=== PATIENT | male | born 1945 | race Caucasian/White ===

== ENCOUNTER 2022-11-03 13:37 | Emergency (ER) | payer MEDICARE ==
[2022-11-03] MEDS ORDERED: ASPIRIN81 MG PO (14:03)
[2022-11-03] MEDS ORDERED: ALBUTEROL SUL0.083 % IN (14:04)
[2022-11-03] MEDS ORDERED: CARVEDILOL6.25 MG PO (14:05)
[2022-11-03] MEDS ORDERED: LIPITOR80 M1 PO (14:05)
[2022-11-03] MEDS ORDERED: PLAVIX75 MG PO (14:06)
[2022-11-03 14:16] VITALS: BP 127/69
[2022-11-03 14:30] VITALS: BP 109/58
[2022-11-03 14:44] LABS: BASO% 0.1 % (0-3); EOS% 0.5 % (0-8); HEMATOCRIT 31.5 % (39.0-50.0); HEMOGLOBIN 10.1 g/dl (14.0-18.0); IMMATURE GRANULOCYTES 0.3 % (0.0-5.0); LYMPH% 5.1 % (15-41); MEAN CELL VOLUME 107.9 fL CALC (80.0-100.0); MEAN CORPUSCULAR HGB 34.6 pG CALC (26.0-32.0); MEAN CORPUSCULAR HGB CONC 32.1 g/dL CAL (32.0-36.0); MONO% 8.7 % (2-13); NEUT# 9.72 thou/uL (1.82-7.42); NEUT% 85.3 % (42-76); RED BLOOD COUNT 2.92 mill/uL (4.70-6.10); RED CELL DISTRI WIDTH 12.6 % (11.5-15.5)
[2022-11-03 15:12] LABS: ALBUMIN 3.9 g/dL (3.2-5.0); BILIRUBIN, TOTAL 0.5 mg/dL (0.2-1.3); POTASSIUM 3.9 mmol/l (3.5-5.1); TOTAL PROTEIN 7.1 g/dL (6.3-8.2)
[2022-11-03 15:19] LABS: CREATININE 10.2 mg/dL (0.7-1.3)
[2022-11-03] MEDS ORDERED: ZOFRAN4 MG/TAB PO (18:57)
[2022-11-03] MEDS ORDERED: TRAMADOL HYDROC50 M1 PO (18:57)
[2022-11-03 19:07] VITALS: BP 109/58
== END 2022-11-03 19:29 | disposition home or self-care (01) ==
LOC: ED 13:37
PROVIDERS: Family Medicine
DX: R10.11 Right upper quadrant pain (principal); I12.0 Hypertensive chronic kidney disease with stage 5 chronic kidney disease or end stage renal disease; N18.6 End stage renal disease; Z99.2 Dependence on renal dialysis; Z95.5 Presence of coronary angioplasty implant and graft

== ENCOUNTER 2022-11-08 13:39 | Emergency (ER) | payer MEDICARE ==
[2022-11-08] VITALS (27 sets, daily range): BP systolic 109–152; BP diastolic 63–81
[~2022-11-08] VITALS: Ht 170.2 cm; Wt 79.1 kg
[~2022-11-08 13:39] MED LIST: ALBUTEROL SUL0.083 % IN; ASPIRIN81 MG PO; CARVEDILOL6.25 MG PO; LIPITOR80 M1 PO; PLAVIX75 MG PO; TRAMADOL HYDROC50 M1 PO; ZOFRAN4 MG/TAB PO
[2022-11-08 16:46] LABS: BASO% 0.1 % (0-3); EOS% 0.8 % (0-8); HEMATOCRIT 33.7 % (39.0-50.0); HEMOGLOBIN 10.6 g/dl (14.0-18.0); LYMPH% 4.7 % (15-41); MEAN CELL VOLUME 110.5 fL CALC (80.0-100.0); MEAN CORPUSCULAR HGB 34.8 pG CALC (26.0-32.0); MEAN CORPUSCULAR HGB CONC 31.5 g/dL CAL (32.0-36.0); MONO% 7.8 % (2-13); NEUT# 8.95 thou/uL (1.82-7.42); NEUT% 85.6 % (42-76); RED BLOOD COUNT 3.05 mill/uL (4.70-6.10); RED CELL DISTRI WIDTH 12.6 % (11.5-15.5)
[2022-11-08 17:05] LABS: ALBUMIN 3.8 g/dL (3.2-5.0); BILIRUBIN, TOTAL 0.5 mg/dL (0.2-1.3); POTASSIUM 4.4 mmol/l (3.5-5.1); TOTAL PROTEIN 7.4 g/dL (6.3-8.2)
[2022-11-08 17:10] LABS: CREATININE 11.2 mg/dL (0.7-1.3)
[2022-11-08] MEDS ORDERED: [UNRECOGNIZED DRUG - CODE] PO (18:35)
[2022-11-08] MEDS ORDERED: SYMBICORT1 AE1 IN (18:35)
[2022-11-08 20:31] LABS: URINE BILIRUBIN - DIPSTICK NEGATIVE (NEGATIVE); URINE BLOOD DIPSTICK SMALL (NEGATIVE); URINE COLOR YELLOW; URINE GLUCOSE - DIPSTICK 250 mg/dL (NEGATIVE); URINE KETONE NEGATIVE (NEGATIVE); URINE LEUK ESTERASE NEGATIVE (NEGATIVE); URINE PH 6.5 (4.5-8.0); URINE PROTEIN - DIPSTICK 30 mg/dL (NEG-TRACE); URINE UROBILINOGEN - DIPSTICK 0.2 E.U./dL (0.2)
[2022-11-08 20:34] LABS: URINE NITRITE - DIPSTICK NEGATIVE (Negative)
[2022-11-08 20:45] LABS: URINE WBC 0-2 WBC/hpf (0-5)
[2022-11-09 00:13] VITALS: BP 121/63
== END 2022-11-09 00:13 | disposition short-term general hospital (02) ==
LOC: ED 13:39
PROVIDERS: Nurse Practitioner
DX: R10.84 Generalized abdominal pain (principal); R14.0 Abdominal distension (gaseous); I12.0 Hypertensive chronic kidney disease with stage 5 chronic kidney disease or end stage renal disease; N18.6 End stage renal disease; K80.20 Calculus of gallbladder without cholecystitis without obstruction; Z99.2 Dependence on renal dialysis; Z20.822 Contact with and (suspected) exposure to COVID-19
CPT/HCPCS: J0692

== ENCOUNTER 2024-03-26 15:53 | Emergency (ER) | payer OTHER, MEDICARE ==
[~2024-03-26] VITALS: Ht 170.2 cm; Wt 46.0 kg
[2024-03-26] VITALS (13 sets, daily range): BP systolic 137–157; BP diastolic 63–74
[~2024-03-26 15:53] MED LIST changes: +SYMBICORT1 AE1 IN; +[UNRECOGNIZED DRUG - CODE] PO
[2024-03-26 16:28] LABS: BASO% 1.4 % (0-3); EOS% 6.1 % (0-8); HEMOGLOBIN 10.1 g/dl (14.0-18.0); LYMPH% 27.5 % (15-41); MEAN CELL VOLUME 113.1 fL CALC (80.0-100.0); MEAN CORPUSCULAR HGB 36.9 pG CALC (26.0-32.0); MEAN CORPUSCULAR HGB CONC 32.6 g/dL CAL (32.0-36.0); MONO% 12.7 % (2-13); NEUT# 1.81 thou/uL (1.82-7.42); NEUT% 52.3 % (42-76); RED BLOOD COUNT 2.74 mill/uL (4.70-6.10)
[2024-03-26 16:34] LABS: ALBUMIN 3.1 g/dL (3.2-5.0); POTASSIUM 4.2 mmol/l (3.5-5.1)
[2024-03-26 16:36] LABS: CREATININE 3.3 mg/dL (0.7-1.3); INTERNATIONAL NORMALIZED RATIO 1.3 RATIO (0.7-1.3)
[2024-03-26 16:37] LABS: BILIRUBIN, TOTAL 2.5 mg/dL (0.2-1.3)
[2024-03-26 16:40] LABS: CHOLESTEROL HDL RATIO 1.8 (<4.4 (CALC)); PROTHROMBIN TIME 12.6 SECONDS (9.0-12.5)
[2024-03-26] MEDS ORDERED: LACTULOSE 20 GM/30 ML UDC PR ONE (17:15)
[2024-03-26] MEDS ORDERED: LACTULOSE 20 GM/30 ML UDC PO ONE (17:15)
== END 2024-03-26 19:40 | disposition short-term general hospital (02) | DRG 64 ==
LOC: ED 15:53
PROVIDERS: Family Medicine
DX: I63.9 Cerebral infarction, unspecified (principal); G93.41 Metabolic encephalopathy; R29.714 NIHSS score 14; N18.6 End stage renal disease; I12.0 Hypertensive chronic kidney disease with stage 5 chronic kidney disease or end stage renal disease; E72.20 Disorder of urea cycle metabolism, unspecified; I25.10 Atherosclerotic heart disease of native coronary artery without angina pectoris; E78.5 Hyperlipidemia, unspecified; K74.60 Unspecified cirrhosis of liver; Z99.2 Dependence on renal dialysis; T47.3X6A Underdosing of saline and osmotic laxatives, initial encounter